=== PATIENT | female | born 1975 | race Asian ===

== ENCOUNTER → 2018-12-15 | Outpatient (REF) | payer OTHER ==
[2018-12-15 14:53] LABS: FREE T4 1.08 NG/DL (0.76-1.46); RHEUMATOID FACTOR QUANT < 10.0 IU/ML (<15.0); THYROID STIMULATING HORMONE 0.697 uIU/ML (0.358-3.740); TOTAL PROTEIN 7.1 GM/DL (6.4-8.2)
[2018-12-15 14:55] LABS: FOLATE 13.7 NG/ML (>5.4); VITAMIN B12 LEVEL > 2000 PG/ML (247-911)
[2018-12-16 08:51] LABS: DRVV SCREEN 33.4 SEC
[2018-12-16 08:55] LABS: PTT LUPUS TYPE ANTICOAG SCREEN 0.8 (0-1.2)
[2018-12-16 11:06] LABS: ALBUMIN 4.32 GM/DL (3.29-5.55); ALBUMIN % 60.8 % (55.8-66.1); ALPHA-1-GLOBULINS 0.21 GM/DL (0.17-0.41); ALPHA-2-GLOBULINS 0.64 GM/DL (0.42-0.99); BETA-1-GLOBULINS 0.36 GM/DL (0.28-0.60); BETA-1-GLOBULINS % 5.1 % (4.7-7.2); BETA-2-GLOBULINS 0.35 GM/DL (0.19-0.55); BETA-2-GLOBULINS % 4.9 % (3.2-6.5); GAMMA GLOBULIN % 17.2 % (11.1-18.8); GAMMA GLOBULINS 1.22 GM/DL (0.65-1.58)
[2018-12-21 00:10] LABS: ANTINUCLEAR ANTIBODIES DIRECT Negative (Negative); VITAMIN B1 LEVEL WHOLE BLOOD 99.7 nmol/L (66.5-200.0); VITAMIN B6,PYRIDOXAL PHOSPHATE 31.5 ug/L (2.0-32.8); VITAMIN E(ALPHA TOCOPHEROL) 8.2 mg/L (7.0-25.1); VITAMIN E(GAMMA TOCOPHEROL) 1.2 mg/L (0.5-5.5)
== END ==
LOC: M LABNEURO 10:53
PROVIDERS: ATTEND Psychiatry & Neurology Neurology
DX: R20.2 Paresthesia of skin (principal)

== ENCOUNTER 2024-06-30 16:22 | Emergency (ER) | payer OTHER ==
[~2024-06-30] VITALS: Ht 165.1 cm; Wt 52.3 kg
[2024-06-30 17:24] LABS: BASO # 0.1 10^3/uL (0.0-0.2); EOS # 0.1 10^3/uL (0.0-0.5); EOS % 1.3 % (0.0-3.0); HEMATOCRIT 42.1 % (36.0-47.0); HEMOGLOBIN 13.9 g/dl (12.0-15.5); LYMPH # 2.5 10^3/uL (1.5-5.0); LYMPH % 47.4 % (24.0-44.0); MEAN CORPUSCULAR HEMOGLOBIN 30.1 pg (27.0-33.0); MEAN CORPUSCULAR VOLUME 91.1 fl (80.0-96.0); MONO # 0.4 10^3/uL (0.0-0.8); MONO % 7.6 % (2.0-8.0); NEUTROPHILS # 2.2 10^3/uL (1.5-8.5); NEUTROPHILS % 42.5 % (36.0-66.0); PLATELET COUNT, AUTOMATED 296 10^3/uL (150-450); RED BLOOD COUNT 4.62 10^6/uL (4.00-5.40); WHITE BLOOD COUNT 5.2 10^3/uL (4.0-10.0)
[2024-06-30 18:47] LABS: CK-MB VALUE MASS < 1.0 NG/ML (<3.6)
[2024-06-30 18:51] LABS: THYROID STIMULATING HORMONE 1.097 uIU/ML (0.55-4.78)
[2024-06-30 19:09] LABS: BLOOD UREA NITROGEN 14 MG/DL (9-23); CALCIUM LEVEL 9.4 MG/DL (8.5-10.1); CARBON DIOXIDE LEVEL 28 MMOL/L (20-31); CHLORIDE LEVEL 106 MMOL/L (98-107); CPK CREATINE PHOSPHOKINASE 44 U/L (34-145); CREATININE FOR GFR 0.65 MG/DL (0.55-1.30); GLOMERULAR FILTRATION RATE > 60.0 (>51); GLUCOSE, FASTING 81 MG/DL (60-100); MAGNESIUM LEVEL 2.4 MG/DL (1.8-2.4); MB/CK RELATIVE INDEX 2.27 (< OR =4); POTASSIUM SERUM 4.6 MMOL/L (3.5-5.1); SODIUM LEVEL 141 MMOL/L (136-145)
[2024-06-30 19:17] LABS: FREE THYROXINE INDEX 2.9 % (1.3-4.8); T UPTAKE 32.2 % (22.5-37.0)
[2024-06-30 19:50] LABS: CPK CREATINE PHOSPHOKINASE 40 U/L (34-145)
[2024-06-30 19:53] LABS: CK-MB VALUE MASS < 1.0 NG/ML (<3.6)
[2024-06-30] MEDS ORDERED: HOLTER MONITOR XX (20:19)
[2024-06-30 20:33] VITALS: BP 123/77; TEMP 97; O2SAT 100
== END 2024-06-30 20:39 | disposition home or self-care (01) ==
LOC: M ED 16:22
DX: R00.2 Palpitations (principal); Z79.899 Other long term (current) drug therapy